=== PATIENT | female | born 2000 | race Caucasian/White ===

== ENCOUNTER 2021-03-24 07:33 | Day surgery (SDC) | payer OTHER ==
[~2021-03-24] VITALS: Ht 137.2 cm; Wt 61.8 kg
--- NOTE | ~2021-03-24 | OR ---
[facility] [address] [place], [place] [address] Draft DATE OF OPERATION: 03/24/2021 SURGEON: Mauro Colvin MD PREOPERATIVE DIAGNOSES: Chronic tonsillitis, . POSTOPERATIVE DIAGNOSES: Chronic tonsillitis, . PROCEDURE: Tonsillectomy. ANESTHESIA: General orotracheal. SHOE LACER: Raoul. PREOPERATIVE HISTORY: Yamile is a 20-year-old young lady with chronic tonsillitis, multiple infections, , tonsillar hypertrophy, taken to the operating room for the above-mentioned procedures. OPERATIVE PROCEDURE AND FINDINGS: After informed consent, the patient was taken to the operating room, placed in supine position where general orotracheal anesthesia was induced. The patient and procedure were verified. The patient was repositioned, a McIvor mouth gag placed into suspension. Headlight exam of the pharynx showed markedly hypertrophic cryptic tonsils. Left tonsil was grasped with a tenaculum, retracted medially and removed from its fossa with mucosal sparing incision with Coblation. Field was dry after the procedure. Same procedure on the right tonsil, tonsils were sent to pathology. Mouth gag was released for several minutes. Reinspection showed no bleeding points. The pharynx was suctioned clear of blood and secretions. The mouth gag was removed. The patient was awakened, extubated, transported to the recovery room in good condition. COMPLICATIONS: No complications. BLOOD LOSS: PATIENT NAME: YAMILE CRISOSTOMO OPERATIVE REPORT DATE OF : [birth year] REPORT #: [id number] PHYSICIAN: MAURO COLVIN MD PCP: TAWANA NASH MD REPORT IS CONFIDENTIAL AND NOT TO BE RELEASED WITHOUT AUTHORIZATION [address] [place], [place] [address] Draft Minimal. SPECIMEN: To pathology. DRAINS: No drains. Mauro Colvin MD GC/MODL /[id number] Copies: ~ PATIENT NAME: YAMILE CRISOSTOMO OPERATIVE REPORT DATE OF : [birth year] REPORT #: [id number] PHYSICIAN: MAURO COLVIN MD PCP: TAWANA NASH MD REPORT IS CONFIDENTIAL AND NOT TO BE RELEASED WITHOUT AUTHORIZATION
[2021-03-24] MEDS ORDERED: DASETTA1 EACH PO (07:42)
[2021-03-24] MEDS ORDERED: ONDANSETRON HCL4 MG PO (07:43)
--- NOTE | 2021-03-24 08:57 | NUR ---
03/24/21 0857 Stephany Ortiz 0854 PATIENT ARRIVES TO PACU UNRESPONSIVE TO PAIN. ORAL AIRWAY IN PLACE. RESP EVEN AND UNLABORED, MASK AT 10 LITERS, DECREASED TO 6.
--- NOTE | 2021-03-24 11:14 | NUR ---
STEADY ON FEET WITH ONE PERSON STAND BY ASSIST FOR AMBULATION TO BR. PT CONTINUES TO DENY PAIN BUT ADMITS TO MILD NAUSEA. THEN SHE RECONSIDERS HER NAUSEA AND THINKS SHE IS EXPERIENCING ANXIETY LIKE SHE USUALLY DOES AT HOME. VOIDS UNMEASURED URINE IN BR AND DISCHARGED VIA WC. COPY OF DC INSTRUCTIONS PROVIDED WITH RX INCLUDED.
--- NOTE | 2021-03-26 15:15 | PATH ---
[facility] [address], [place] [address] Signed SPECIMEN(S): A LEFT TONSIL SPECIMEN(S): B RIGHT TONSIL SPECIMEN SOURCE: A. LEFT TONSIL B. RIGHT TONSIL CLINICAL HISTORY: Pre-op: Tonsillar hypertrophy, tonsillitis, tonsilithiasis. Post-op: Tonsillectomy. FINAL PATHOLOGIC DIAGNOSIS: A., B. Tonsils, left and right, bilateral tonsillectomy: - Reactive lymphoid hyperplasia. BRP:cml:C2NR MICROSCOPIC EXAMINATION: Histologic sections of all submitted blocks are examined by light microscopy. These findings, together with the gross examination, support the pathologic diagnosis. GROSS DESCRIPTION: Two specimens are received in two containers, labeled "Yamile Keating." A. The specimen, labeled "Yamile Keating," and designated on the requisition "left tonsil," is received in formalin and consists of a 2.7 x 2.1 x 1.5 cm palatine tonsil. The mucosal surface is pink-panchal and smooth with areas of folds. Cut sections reveal a pink homogeneous cut surface, with the usual crypt-like architecture. The specimen is inked. Interpreter Translator sections are submitted in cassette (A1). B. The specimen, labeled "Yamile Keating," and designated on the requisition "right tonsil," is received in formalin and consists of a 3.1 x 2.4 x 1.8 cm palatine tonsil. The mucosal surface is pink-panchal and smooth with areas of folds. Cut sections reveal a pink homogeneous cut surface, with the usual crypt-like architecture. Interpreter Translator sections are submitted in cassette (A1). FB (under the direct supervision of a pathologist) The Gross Description was prepared using a voice recognition system. The report was reviewed for accuracy; however, sound-alike word errors, addition and/or deletions may occur. If there is any PATIENT NAME: YAMILE KEATING PATHOLOGY DATE OF : [birth year] REPORT #: [id number] PHYSICIAN: TERRY PATHOLOGY PCP: TAWANA NASH MD REPORT IS CONFIDENTIAL AND NOT TO BE RELEASED WITHOUT AUTHORIZATION [facility] [address], [place] [address] Signed question about this report, please contact Client Services. PERFORMING LABORATORY: The technical component was performed by [facility] [address] [address] (Modeling Agency Manager: Khadra Alberts MD; CLIA# [id number]). [facility], [address] [place], [place] [address] (CLIA# [id number]). Diagnostician: Hipolito Sanchez MD Pathologist Electronically Signed 03/26/2021 Copies: ~ PATIENT NAME: YAMILE KEATING PATHOLOGY DATE OF : [birth year] REPORT #: [id number] PHYSICIAN: TERRY MONK PCP: TAWANA NASH MD REPORT IS CONFIDENTIAL AND NOT TO BE RELEASED WITHOUT AUTHORIZATION
== END 2021-03-24 11:09 | disposition home or self-care (01) ==
LOC: OPS 07:33 → DS 07:33 → OPS 08:00
PROVIDERS: ATTEND Otolaryngology
PROC: 0CTPXZZ Resection of Tonsils, External Approach (ICD-10-PCS; principal; 2021-03-24 08:00)
DX: J35.01 Chronic tonsillitis (principal); Q00-Q99 Congenital malformations, deformations and chromosomal abnormalities
CPT/HCPCS: J0330; J1100; J1885; J2250; J2405; J2704; J2765; J3010; J7121